=== PATIENT | female | born 1945 | race Caucasian/White ===

== ENCOUNTER 2022-09-28 06:11 | Observation (INO) | payer MEDICARE, BC ==
[2022-09-28] VITALS (37 sets, daily range): BP systolic 114–1689; BP diastolic 60–101; PULSE 70–98; TEMP 97.6–98.7
[~2022-09-28] VITALS: Ht 157.5 cm; Wt 66.0 kg
[~2022-09-28 06:11] MED LIST: ADVAIR IH; ASPIRIN E.C. 8181 MG PO; ASTELIN137 MCG/AC NS; ATROVENT INHALE14 GM IH; CALCIUM 500500 MG PO; CALCIUM 600600 MG PO; GARLIC100 MG; KLOR-CON SPRIN10 MEQ PO; MASON NATURAL2000 IU PO; MIRALAX PA17 GM/Dose PO; MULTIPLE VITAMI1 CAP PO; NASACORT OTC NS; NEXIUM 40MG40 MG PEG; OXYBUTYNIN10 MG PO; OXYGEN; PRIL40 PO; PROVENTIL0.09 MG/A1 IH; REGLAN 5MG T5 MG/TAB PO; RHINOCORT AQUA8.6 GM NS; RT ADVAIR HFA 2312 G IH; SANCTURA XR60 MG PO; SINGULAIR10 MG PO; SYNTHROID0.05 MG/TA PO; VENTOLIN0.09 MG IH; ZITHROMAX 250M250 MG PO
--- NOTE | 2022-09-28 08:04 | NUR ---
Pt to ct per ambulation. Denies pain. Pt up and onto ct table in supine posititon. Monitors applied and O2 on at 2l/nc.
--- NOTE | 2022-09-28 08:45 | NUR ---
Specimen obtained by Dr Santos and placed in formalin. Specimen labeled. Pt has started coughing up blood small amount into tissues. Pt sitting up in bed. O2 tubing removed due to blood on cannula. Pt reports some pain in anterior chest wall.
--- NOTE | 2022-09-28 08:50 | NUR ---
Pt moved to cart for transport for chest xray. 0829 Chest xray completed and pt to EU. Pt reports pain with movement to left chest anteriorly.
--- NOTE | 2022-09-28 11:33 | NUR ---
Pt was seen by Dr. Santos post chest x-ray. Dr informed pt that they have a pneumothorax and will be taken for a CT chest with possible chest tube placement.
--- NOTE | 2022-09-28 11:36 | NUR ---
pt back to ct for chest tube placement per Dr Santos. Monitors applied. O2 continues at 2l/nc.
--- NOTE | 2022-09-28 12:00 | NUR ---
Chest tube in place to left upper chest heimlich valve.
--- NOTE | 2022-09-28 12:50 | NUR ---
PATIENT ADMITTED FROM RADIOLOGY AFTER POST OP LUNG BX PNEUMO AND LEFT CHEST HEIMLICK VALVE PLACEMENT. RADIOLOGY NURSE ON FLOOR WITH PATIENT, REPORT GIVEN AT BEDSIDE. DENIES CHEST PAIN OR SOA. NOTED DEMINISHED LEFT LUNG LANDRY. 02 @ 2L PER NC WITH SATS IN MID TO UPPER 90'S. ALL OTHER VSS. HEAD TO TOE ASSESSMENT COMPLETE. LEFT AC IV TO INT. ORIENTED PATIENT AND TO ROOM. CALL LIGHT IN REACH.
--- NOTE | 2022-09-28 13:50 | NUR ---
HOSPITALIST AT BEDSIDE, SEE NOTES/ORDERS.
--- NOTE | 2022-09-28 20:30 | NUR ---
PATIENT IS RESTING IN BED.PATIENT REPORTS OF PAIN MEDS GIVEN PER MAR.PATIENT REPORTS OF COUGHING UP BLOOD IN SPUTUM.PATIENT WAS REASSURED.PATIENT STILL ANXIOUS NIGHT PROVIDER INFORMED.PATIENT WAS REVIEWED BY THE NIGHT PROVIDER.NO NEW ORDERS
[2022-09-29 00:01] VITALS: BP 140/70; PULSE 81; TEMP 97.6
[2022-09-29 03:43] VITALS: BP 145/71; PULSE 77; TEMP 97.4
--- NOTE | 2022-09-29 06:00 | NUR ---
PATIENT DENIES SOB AND PAIN.PATIENT TAKES AM PILLS WITH NO TROUBLE.SHEST TUBE DRESSING IS CLEAN.SAFETY MEASURESIN PLACE.NO OTHER NEEDS AT THIS TIME.
[2022-09-29 06:24] LABS: BASO % 0.3 % (0.0-2.0); EOS # 0.1 K/mm3 (0.0-0.7); EOS % 2.4 % (0.0-4.0); GRAN % 68.1 % (42.2-75.2); HEMATOCRIT 42.5 % (37.0-47.0); LYMPH # 1.1 K/mm3 (1.2-3.4); LYMPH % 19.2 % (20.0-51.0); MEAN CELL VOLUME 98 fl (80.0-100.0); MEAN CORPUSCULAR HEMOGLOBIN 32 pg (27-31); MEAN CORPUSCULAR HGB CONC 33 g/dl (33.0-37.0); MEAN PLATELET VOLUME 11.6 fl (7.4-10.4); MONO # 0.6 K/mm3 (0.1-0.6); MONO % 9.7 % (1.7-9.3); PLATELET COUNT 192 K/mm3 (130-400); RED BLOOD COUNT 4.36 M/mm3 (4.10-5.30); REDCELL DISTRIBUTION WIDTH-CV 14.1 % (11.5-14.5)
[2022-09-29 06:41] LABS: CALCIUM 8.7 mg/dL (8.4-10.2); CREATININE, serum 0.63 mg/dL (0.57-1.11); POTASSIUM 3.4 mmol/L (3.5-4.5)
[2022-09-29 07:57] VITALS: BP 148/70; PULSE 77; TEMP 98
[2022-09-29 08:55] VITALS: BP_SYST 148
--- NOTE | 2022-09-29 08:55 | NUR ---
Pt. sitting up in chair. Pt. is a&OX3, assessment complete. INT to rt. hand patent. Himlich valve to lt. chest noted. Pt. denies pain or SOA. Pt. denies further needs, call light within reach.
--- NOTE | 2022-09-29 09:45 | NUR ---
Initial visit; Patient and her appeared comfortable with Legal Librarian's visit and were receptive to Legal Librarian keeping them both in her prayers. Renetta had complications with her latest Procedure for a spot on her lung. Legal Librarian will continue to check on Renetta and Steve.
--- NOTE | 2022-09-29 11:11 | NUR ---
ZACHARIAH met with the patient and her , Mckay (ph#[phone]), to discuss discharge plan. The patient lives in [place] with her . She reports independence with ADLs and does not have any DME. The patient's PCP is Dr. Barbie Nuñez at the [facility] and she obtains her medications from [facility] in [place]. The patient does not have a DPOA-HC and she was not interested in completing one at this time. The patient plans to return home with her upon discharge. No additional needs at this time. *Discharge plan: home with *
[2022-09-29 12:06] VITALS: BP 139/71; PULSE 90; TEMP 97.9
[2022-09-29 13:30] VITALS: BP_SYST 139
--- NOTE | 2022-09-29 14:00 | NUR ---
Pt. has met discharge criteria. INT discontinued from rt. hand. Pt. given and reviewed discharge paperwork. Pt. voices understanding. Pt. escorted out.
== END 2022-09-29 14:00 | disposition home or self-care (01) ==
LOC: COL.RAD 06:11 → SURG 12:56 → COL.RAD 14:04 → SURG 14:05
PROVIDERS: Physician Assistant; ADMIT Student in an Organized Health Care Education/Training Program
DX: C34.12 Malignant neoplasm of upper lobe, left bronchus or lung (principal); J95.811 Postprocedural pneumothorax; J44.9 Chronic obstructive pulmonary disease, unspecified; R09.02 Hypoxemia; E03.9 Hypothyroidism, unspecified; K21.9 Gastro-esophageal reflux disease without esophagitis; Z79.899 Other long term (current) drug therapy; Z85.3 Personal history of malignant neoplasm of breast; Z79.890 Hormone replacement therapy; Z92.3 Personal history of irradiation; Z92.21 Personal history of antineoplastic chemotherapy; Z79.51 Long term (current) use of inhaled steroids; Z87.891 Personal history of nicotine dependence
CPT/HCPCS: G0378; J3010